=== PATIENT | female | born 1940 | race African-American/Black ===

== ENCOUNTER → 2017-10-23 | Outpatient (CLI) | payer MEDICARE ==
[~2017-10-23] MED LIST: ATEN-42; LEVO100T; LISI-604; NIFE90TA47; TRIA1CAP35
== END | disposition home or self-care (01) ==
LOC: MAMMO 09:14
PROVIDERS: ATTEND Specialist
DX: Z12.31 Encounter for screening mammogram for malignant neoplasm of breast (principal)
CPT/HCPCS: 77067

== ENCOUNTER 2018-07-04 07:40 | Inpatient (IN) | payer MEDICARE ==
[~2018-07-04] VITALS: Ht 165.1 cm; Wt 104.3 kg
[2018-07-04] VITALS (47 sets, daily range): BP systolic 113–180; BP diastolic 63–118
[2018-07-04] MEDS ORDERED: METHYLPREDNISOLONE SOD SUCC 125 MG/2 ML VIAL IV ONE (08:15)
[2018-07-04] MEDS ORDERED: FAMOTIDINE 20MG/2ML VIAL IV ONE (08:15)
[2018-07-04] MEDS ORDERED: DIPHENHYDRAMINE 50MG/ML VIAL IV ONE (08:15)
[2018-07-04 08:59] LABS: BASOPHILS % 1.5 % (0.0-2.0); EOSINOPHILS % 2.5 % (0.0-5.0); HEMATOCRIT. 40.8 % (36.0-48.0); HEMOGLOBIN. 13.9 g/dL (12.0-16.0); LYMPHOCYTES % 45.6 % (20.0-50.0); MEAN CORPUSCULAR HEMOGLOBIN 29.7 pg (28.0-32.0); MEAN CORPUSCULAR VOLUME 87.5 fL (81.0-99.0); MEAN PLATELET VOLUME 8.1 fl (7.4-10.4); MONOCYTES % 12.7 % (2.0-8.0); NEUTROPHILS % 37.7 % (40.0-76.0); PLATELET 221 x1000/uL (130-400); RED BLOOD CELL COUNT 4.66 mill/uL (4.2-5.4); RED CELL DISTRIBUTION WIDTH 13.7 % (11.6-14.6)
[2018-07-04 09:03] LABS: CHLORIDE 103 mEq/L (98-107)
[2018-07-04 09:06] LABS: PROTHROMBIN TIME 10.3 sec (9.1-11.1)
[2018-07-04] MEDS ORDERED: PROPOFOL 10MG/ML 100ML 100 ML IV ONE ×2 (09:09→09:15)
[2018-07-04] MEDS ORDERED: ETOMIDATE 2MG/ML 10ML VIAL IV ONE ×2 (09:15→15:42)
[2018-07-04] MEDS ORDERED: SUCCINYLCHOLINE CHLORIDE 200MG/10ML IV ONE ×2 (09:15→15:42)
[2018-07-04 10:03] LABS: BG BASE EXCESS -0.4 mmol/L (-2.0-2.0); BG CARBOXYHEMOGLOBIN 0.6 % (0.5-1.5); BG DEOXYHEMOGLOBIN 2.2 % (0.0-5.0); BG FRACTION INSPIRED OXYGEN 50; BG HCO3 ACT 23.4 mmol/L (22.0-26.0); BG METHEMOGLOBIN 0.3 % (0.0-1.5); BG OXYGEN SATURATION 97.8 % (92.0-98.5); BG OXYHEMOGLOBIN 96.9 % (94.0-97.0); BG PH 7.431 (7.350-7.450); BG PO2 102.7 mmHg (75.0-100.0); BG SAMPLE SITE RIGHT RADIAL; BG TIDAL VOLUME(mL) 550 mL; BG TOTAL HEMOGLOBIN 14.4 g/dL (12.0-18.0); BG VENT MODE VENT - A/C; BG VENT RATE 14 set
[2018-07-04] MEDS ORDERED: IPRATROPIUM/ALBUTEROL 0.5-3(2.5)MG/3ML NEB HHN PRN (10:30)
[2018-07-04] MEDS ORDERED: OMEP40CA34 PO (10:53)
[2018-07-04] MEDS ORDERED: LORA0.5T2 PO (10:53)
[2018-07-04] MEDS ORDERED: LISI40TA4 PO (10:53)
[2018-07-04] MEDS ORDERED: HYDR-4001 PO (10:53)
[2018-07-04] MEDS ORDERED: SIMV20TA6 PO (10:53)
[2018-07-04] MEDS ORDERED: GABA-531 PO (10:53)
[2018-07-04] MEDS: PROPOFOL 10MG/ML 100ML 100 ML IV PRN ×5 (11:38→23:05)
[2018-07-04] MEDS ORDERED: FENTANYL CITRATE/PF 500 MCG in SODIUM CHLORIDE 0.9% 40 ML IV PRN (12:00)
[2018-07-04] MEDS ORDERED: METHYLPREDNISOLONE SOD SUCC 125 MG/2 ML VIAL IV SCH (12:00)
[2018-07-04] MEDS: IPRATROPIUM/ALBUTEROL 0.5-3(2.5)MG/3ML NEB HHN SCH ×3 (12:53→21:18)
[2018-07-04] MEDS: DIPHENHYDRAMINE 50MG/ML VIAL IV SCH ×2 (13:33→18:46)
[2018-07-04] MEDS: DEXAMETHASONE 10 MG/ML VIAL IV SCH (18:46)
[2018-07-04] MEDS: FAMOTIDINE 20MG/2ML VIAL IV SCH (21:19)
[2018-07-04] MEDS: ENOXAPARIN 30MG/0.3ML SYR SUBCUT SCH (21:20)
[2018-07-04] MEDS: HYDRALAZINE 20MG/ML VIAL IV PRN (21:50)
[2018-07-04] MEDS: FENTANYL CITRATE/PF 500 MCG in SODIUM CHLORIDE 0.9% 40 ML IV PRN (22:22)
[2018-07-05] VITALS (67 sets, daily range): BP systolic 108–176; BP diastolic 50–94
[2018-07-05] MEDS: IPRATROPIUM/ALBUTEROL 0.5-3(2.5)MG/3ML NEB HHN SCH ×6 (00:38→20:00)
[2018-07-05] MEDS: PROPOFOL 10MG/ML 100ML 100 ML IV PRN ×5 (02:06→20:28)
[2018-07-05] MEDS: FENTANYL CITRATE/PF 500 MCG in SODIUM CHLORIDE 0.9% 40 ML IV PRN ×2 (04:59→18:45)
[2018-07-05] MEDS: DEXAMETHASONE 10 MG/ML VIAL IV SCH ×3 (05:07→16:59)
[2018-07-05] MEDS: DIPHENHYDRAMINE 50MG/ML VIAL IV SCH ×3 (05:08→16:59)
[2018-07-05 08:18] LABS: BG BASE EXCESS -0.8 mmol/L (-2.0-2.0); BG CARBOXYHEMOGLOBIN 0.7 % (0.5-1.5); BG DEOXYHEMOGLOBIN 1.8 % (0.0-5.0); BG FRACTION INSPIRED OXYGEN 50; BG METHEMOGLOBIN 0.4 % (0.0-1.5); BG OXYGEN SATURATION 98.2 % (92.0-98.5); BG OXYHEMOGLOBIN 97.1 % (94.0-97.0); BG PCO2 31.4 mmHg (35.0-45.0); BG PH 7.464 (7.350-7.450); BG PO2 107.7 mmHg (75.0-100.0); BG SAMPLE SITE LEFT BRACHIAL; BG TIDAL VOLUME(mL) 550 mL; BG VENT MODE VENT - A/C; BG VENT RATE 14 set
[2018-07-05] MEDS: ENOXAPARIN 30MG/0.3ML SYR SUBCUT SCH ×2 (08:28→21:02)
[2018-07-05] MEDS: ONDANSETRON HCL 4MG/2ML INJ IV PRN (08:28)
[2018-07-05] MEDS: FAMOTIDINE 20MG/2ML VIAL IV SCH ×2 (08:28→21:02)
[2018-07-05] MEDS ORDERED: DEXTROSE 50% WATER 50ML SYRINGE IV PRN (11:00)
[2018-07-05] MEDS: INSULIN LISPRO 100 UNITS/ML SUBCUT SCH ×3 (11:27→21:02)
[2018-07-05] MEDS: BLOOD SUGAR DIAGNOSTIC STRIP TEST SCH ×3 (11:28→20:48)
[2018-07-06] VITALS (69 sets, daily range): BP systolic 93–169; BP diastolic 50–133
[2018-07-06] MEDS: IPRATROPIUM/ALBUTEROL 0.5-3(2.5)MG/3ML NEB HHN SCH ×6 (00:03→21:07)
[2018-07-06] MEDS: DEXAMETHASONE 10 MG/ML VIAL IV SCH ×5 (00:13→23:44)
[2018-07-06] MEDS: DIPHENHYDRAMINE 50MG/ML VIAL IV SCH ×5 (00:14→23:43)
[2018-07-06] MEDS: PROPOFOL 10MG/ML 100ML 100 ML IV PRN ×6 (00:17→22:15)
[2018-07-06] MEDS: INSULIN LISPRO 100 UNITS/ML SUBCUT SCH ×4 (05:44→23:45)
[2018-07-06] MEDS: BLOOD SUGAR DIAGNOSTIC STRIP TEST SCH ×4 (05:45→23:42)
[2018-07-06] MEDS: ONDANSETRON HCL 4MG/2ML INJ IV PRN (08:45)
[2018-07-06] MEDS: FAMOTIDINE 20MG/2ML VIAL IV SCH ×2 (08:45→21:47)
[2018-07-06] MEDS: ENOXAPARIN 30MG/0.3ML SYR SUBCUT SCH ×2 (08:45→21:47)
[2018-07-06 08:56] LABS: BG BASE EXCESS 0.1 mmol/L (-2.0-2.0); BG CARBOXYHEMOGLOBIN 0.3 % (0.5-1.5); BG DEOXYHEMOGLOBIN 2.3 % (0.0-5.0); BG FRACTION INSPIRED OXYGEN 40; BG HCO3 ACT 24.1 mmol/L (22.0-26.0); BG METHEMOGLOBIN 0.3 % (0.0-1.5); BG OXYGEN SATURATION 97.7 % (92.0-98.5); BG OXYHEMOGLOBIN 97.1 % (94.0-97.0); BG PH 7.432 (7.350-7.450); BG SAMPLE SITE RIGHT RADIAL; BG TIDAL VOLUME(mL) 550 mL; BG VENT MODE VENT - A/C; BG VENT RATE 14 set
[2018-07-07] VITALS (52 sets, daily range): BP systolic 125–197; BP diastolic 55–99
[2018-07-07] MEDS: IPRATROPIUM/ALBUTEROL 0.5-3(2.5)MG/3ML NEB HHN SCH ×6 (00:29→20:55)
[2018-07-07] MEDS: PROPOFOL 10MG/ML 100ML 100 ML IV PRN ×6 (01:46→23:33)
[2018-07-07] MEDS: FENTANYL CITRATE/PF 500 MCG in SODIUM CHLORIDE 0.9% 40 ML IV PRN ×2 (03:17→22:25)
[2018-07-07] MEDS: DIPHENHYDRAMINE 50MG/ML VIAL IV SCH (06:31)
[2018-07-07] MEDS: DEXAMETHASONE 10 MG/ML VIAL IV SCH ×3 (06:32→17:23)
[2018-07-07] MEDS: INSULIN LISPRO 100 UNITS/ML SUBCUT SCH ×3 (06:33→17:23)
[2018-07-07] MEDS: BLOOD SUGAR DIAGNOSTIC STRIP TEST SCH ×3 (06:41→17:16)
[2018-07-07] MEDS: ENOXAPARIN 30MG/0.3ML SYR SUBCUT SCH ×2 (07:59→21:05)
[2018-07-07] MEDS: FAMOTIDINE 20MG/2ML VIAL IV SCH ×2 (07:59→21:02)
[2018-07-07 08:46] LABS: BG BASE EXCESS 0.9 mmol/L (-2.0-2.0); BG CARBOXYHEMOGLOBIN 0.7 % (0.5-1.5); BG DEOXYHEMOGLOBIN 2.4 % (0.0-5.0); BG FRACTION INSPIRED OXYGEN 40; BG HCO3 ACT 25.1 mmol/L (22.0-26.0); BG METHEMOGLOBIN 0.3 % (0.0-1.5); BG OXYGEN SATURATION 97.6 % (92.0-98.5); BG OXYHEMOGLOBIN 96.6 % (94.0-97.0); BG PCO2 38.6 mmHg (35.0-45.0); BG PH 7.431 (7.350-7.450); BG SAMPLE SITE RIGHT RADIAL; BG TIDAL VOLUME(mL) 550 mL; BG TOTAL HEMOGLOBIN 13.4 g/dL (12.0-18.0); BG VENT MODE VENT - A/C; BG VENT RATE 14 set
[2018-07-07 09:57] LABS: CHLORIDE 105 mEq/L (98-107)
[2018-07-07] MEDS ORDERED: LACTULOSE 20G/30ML UDC PO NR (10:30)
[2018-07-07] MEDS ORDERED: BISACODYL 10MG SUPP PR PRN (10:30)
[2018-07-07] MEDS ORDERED: DIPHENHYDRAMINE 50MG/ML VIAL IV PRN (10:30)
[2018-07-07 10:52] LABS: HEMOGLOBIN. 12.9 g/dL (12.0-16.0); MEAN CORPUSCULAR HEMOGLOBIN 28.8 pg (28.0-32.0); MEAN CORPUSCULAR VOLUME 87.1 fL (81.0-99.0); MEAN PLATELET VOLUME 8.9 fl (7.4-10.4); PLATELET 202 x1000/uL (130-400); RED BLOOD CELL COUNT 4.48 mill/uL (4.2-5.4); RED CELL DISTRIBUTION WIDTH 13.7 % (11.6-14.6)
[2018-07-07] MEDS: DOCUSATE SODIUM SUGAR FREE 100MG/10ML UDC NG SCH (11:03)
[2018-07-07 12:47] LABS: NUCLEATED RED BLOOD CELLS 1 /100 WBC; PLATELET ESTIMATE NORMAL
[2018-07-07] MEDS ORDERED: VANCOMYCIN 2,000 MG in DEXT 5% WATER 500 ML IV SCH (13:30)
[2018-07-08] VITALS (41 sets, daily range): BP systolic 132–198; BP diastolic 57–88
[2018-07-08] MEDS: DEXAMETHASONE 10 MG/ML VIAL IV SCH ×3 (00:19→11:08)
[2018-07-08] MEDS: INSULIN LISPRO 100 UNITS/ML SUBCUT SCH ×4 (00:21→17:12)
[2018-07-08] MEDS: BLOOD SUGAR DIAGNOSTIC STRIP TEST SCH ×4 (00:21→17:04)
[2018-07-08] MEDS: IPRATROPIUM/ALBUTEROL 0.5-3(2.5)MG/3ML NEB HHN SCH ×5 (01:20→20:10)
[2018-07-08] MEDS: PROPOFOL 10MG/ML 100ML 100 ML IV PRN ×2 (02:30→05:55)
[2018-07-08] MEDS: HYDRALAZINE 20MG/ML VIAL IV PRN ×2 (04:41→15:14)
[2018-07-08] MEDS: LORAZEPAM 2MG/ML CPJ IV PRN ×2 (08:28→17:11)
[2018-07-08] MEDS: FAMOTIDINE 20MG/2ML VIAL IV SCH ×2 (08:59→20:48)
[2018-07-08] MEDS: ENOXAPARIN 30MG/0.3ML SYR SUBCUT SCH ×2 (08:59→20:48)
[2018-07-08] MEDS: DOCUSATE SODIUM SUGAR FREE 100MG/10ML UDC NG SCH (08:59)
[2018-07-08 09:21] LABS: BG BASE EXCESS 3.2 mmol/L (-2.0-2.0); BG CARBOXYHEMOGLOBIN 0.8 % (0.5-1.5); BG CPAP (cmH2O) 0 cm(H2O); BG DEOXYHEMOGLOBIN 3.1 % (0.0-5.0); BG METHEMOGLOBIN 0.3 % (0.0-1.5); BG OXYGEN SATURATION 96.9 % (92.0-98.5); BG OXYHEMOGLOBIN 95.8 % (94.0-97.0); BG PCO2 38.8 mmHg (35.0-45.0); BG PH 7.461 (7.350-7.450); BG PO2 80.4 mmHg (75.0-100.0); BG SAMPLE SITE RIGHT RADIAL; BG VENT MODE VENT - CPAP
[2018-07-08] MEDS ORDERED: RACEPINEPHRINE 2.25% 0.5ML NEB VIAL HHN NR (10:17)
[2018-07-08] MEDS ORDERED: RACEPINEPHRINE 2.25% 0.5ML NEB VIAL HHN PRN (13:00)
[2018-07-08] MEDS: VANCOMYCIN 1250MG in DEXTROSE 5% WATER 250ML IV SCH (13:56)
[2018-07-08] MEDS ORDERED: MORPHINE SULFATE 4 MG/ML CPJ (NOT FOR IM USE) IV PRN (14:00)
[2018-07-08] MEDS ORDERED: LABETALOL 5MG/ML SYR 20 MG/4 ML SYRINGE IV PRN (15:45)
[2018-07-08] MEDS: LABETALOL HCL 20MG/4ML CARPUJECT IV PRN (16:59)
[2018-07-08] MEDS: DEXAMETHASONE 1MG TABLET PO SCH (17:00)
[2018-07-08] MEDS: HYDRALAZINE 20MG/ML VIAL IV SCH (20:48)
[2018-07-09] VITALS (33 sets, daily range): BP systolic 114–179; BP diastolic 49–87
[2018-07-09] MEDS: BLOOD SUGAR DIAGNOSTIC STRIP TEST SCH ×5 (00:01→21:29)
[2018-07-09] MEDS: DEXAMETHASONE 1MG TABLET PO SCH ×4 (00:01→23:17)
[2018-07-09] MEDS: LABETALOL HCL 20MG/4ML CARPUJECT IV PRN (00:10)
[2018-07-09] MEDS: INSULIN LISPRO 100 UNITS/ML SUBCUT SCH ×5 (00:12→21:00)
[2018-07-09] MEDS: HYDRALAZINE 20MG/ML VIAL IV SCH ×3 (02:58→12:50)
[2018-07-09] MEDS: IPRATROPIUM/ALBUTEROL 0.5-3(2.5)MG/3ML NEB HHN SCH ×5 (03:41→20:30)
[2018-07-09 06:13] LABS: BASOPHILS % 0.1 % (0.0-2.0); HEMATOCRIT. 42.2 % (36.0-48.0); HEMOGLOBIN. 13.9 g/dL (12.0-16.0); MEAN CORPUSCULAR HEMOGLOBIN 29.2 pg (28.0-32.0); MEAN CORPUSCULAR VOLUME 88.5 fL (81.0-99.0); MEAN PLATELET VOLUME 8.5 fl (7.4-10.4); MONOCYTES % 13.4 % (2.0-8.0); NEUTROPHILS % 72.5 % (40.0-76.0); PLATELET 235 x1000/uL (130-400); RED BLOOD CELL COUNT 4.77 mill/uL (4.2-5.4); RED CELL DISTRIBUTION WIDTH 13.6 % (11.6-14.6)
[2018-07-09 06:27] LABS: CHLORIDE 104 mEq/L (98-107)
[2018-07-09 06:41] LABS: HDL CHOLESTEROL 57 mg/dL (40-59); LDL CHOLESTEROL 99 mg/dL (5-100)
[2018-07-09] MEDS: ENOXAPARIN 30MG/0.3ML SYR SUBCUT SCH ×2 (08:40→21:20)
[2018-07-09] MEDS: FAMOTIDINE 20MG/2ML VIAL IV SCH ×2 (08:40→21:20)
[2018-07-09] MEDS: DOCUSATE SODIUM SUGAR FREE 100MG/10ML UDC NG SCH (08:40)
[2018-07-09 08:53] LABS: *AMPHETAMINES SCREEN URINE NEGATIVE (NEGATIVE); *BARBITURATES SCREEN URINE NEGATIVE (NEGATIVE); *BENZODIAZEPINES SCREEN URINE NEGATIVE (NEGATIVE); *COCAINE SCREEN URINE NEGATIVE (NEGATIVE); CANNABINOID URINE SCREEN NEGATIVE (NEGATIVE); METHADONE URINE SCREEN NEGATIVE (NEGATIVE); OPIATES URINE SCREEN PRESUMTIVE POSITIVE (NEGATIVE); PHENCYCLIDINE URINE SCREEN NEGATIVE (NEGATIVE)
[2018-07-09] MEDS: VANCOMYCIN 1250MG in DEXTROSE 5% WATER 250ML IV SCH (12:50)
[2018-07-09] MEDS: THROAT LOZENGES-BENZOCAINE/MENTH/CETYLPYRD CL LOZENGES MM PRN (12:51)
[2018-07-09] MEDS: HYDRALAZINE HCL 50MG TABLET PO SCH ×2 (17:51→23:17)
[2018-07-09] MEDS ORDERED: CLONIDINE 0.2MG TABLET PO PRN (18:00)
[2018-07-10] VITALS (39 sets, daily range): BP systolic 127–179; BP diastolic 58–96
[2018-07-10] MEDS: IPRATROPIUM/ALBUTEROL 0.5-3(2.5)MG/3ML NEB HHN SCH ×6 (00:21→20:44)
[2018-07-10] MEDS: HYDRALAZINE HCL 50MG TABLET PO SCH ×3 (05:20→21:06)
[2018-07-10] MEDS: BLOOD SUGAR DIAGNOSTIC STRIP TEST SCH ×3 (07:37→21:24)
[2018-07-10] MEDS: INSULIN LISPRO 100 UNITS/ML SUBCUT SCH ×3 (07:37→21:00)
[2018-07-10] MEDS: DOCUSATE SODIUM SUGAR FREE 100MG/10ML UDC NG SCH (08:20)
[2018-07-10] MEDS: THROAT LOZENGES-BENZOCAINE/MENTH/CETYLPYRD CL LOZENGES MM PRN ×2 (08:20→17:47)
[2018-07-10] MEDS: ENOXAPARIN 30MG/0.3ML SYR SUBCUT SCH ×2 (08:20→20:53)
[2018-07-10] MEDS: FAMOTIDINE 20MG/2ML VIAL IV SCH ×2 (08:20→21:06)
[2018-07-10] MEDS: DEXAMETHASONE 1MG TABLET PO SCH ×2 (08:20→15:23)
[2018-07-10] MEDS: ACETAMINOPHEN 325MG TABLET PO PRN (08:20)
[2018-07-10] MEDS ORDERED: LIDOCAINE HCL 1% 20ML VIAL (Pyxis) INJ ONE (09:09)
[2018-07-10] MEDS ORDERED: [UNRECOGNIZED DRUG - REMARK] XX SCH (09:30)
[2018-07-10] MEDS: NIFEDIPINE XL 90MG TAB PO SCH (11:01)
[2018-07-10] MEDS: ATENOLOL 50 MG TABLET PO SCH (11:01)
[2018-07-10] MEDS: NAFCILLIN SODIUM IV SCH ×3 (11:02→21:05)
[2018-07-10] MEDS: WATER IV SCH ×3 (11:02→21:05)
[2018-07-10] MEDS: DEXTROSE 5% IV SCH ×3 (11:02→21:05)
[2018-07-11] VITALS: BP 145/62
[2018-07-11] MEDS: IPRATROPIUM/ALBUTEROL 0.5-3(2.5)MG/3ML NEB HHN SCH ×5 (00:45→16:36)
[2018-07-11 04:00] VITALS: BP 116/58
[2018-07-11] MEDS: WATER IV SCH ×5 (04:17→12:21)
[2018-07-11] MEDS: DEXTROSE 5% IV SCH ×5 (04:17→12:21)
[2018-07-11] MEDS: NAFCILLIN SODIUM IV SCH ×5 (04:17→12:21)
[2018-07-11] MEDS: ACETAMINOPHEN 325MG TABLET PO PRN ×2 (04:17→13:35)
[2018-07-11] MEDS: ONDANSETRON HCL 4MG/2ML INJ IV PRN (04:18)
[2018-07-11] MEDS: INSULIN LISPRO 100 UNITS/ML SUBCUT SCH ×2 (06:20→11:45)
[2018-07-11] MEDS: BLOOD SUGAR DIAGNOSTIC STRIP TEST SCH ×2 (06:20→12:15)
[2018-07-11] MEDS: HYDRALAZINE HCL 50MG TABLET PO SCH ×2 (06:21→13:32)
[2018-07-11 08:00] VITALS: BP 131/58
[2018-07-11 09:03] LABS: HEMATOCRIT. 37.7 % (36.0-48.0); HEMOGLOBIN. 12.5 g/dL (12.0-16.0); MEAN CORPUSCULAR VOLUME 88.4 fL (81.0-99.0); RED BLOOD CELL COUNT 4.27 mill/uL (4.2-5.4)
[2018-07-11 09:04] LABS: MEAN CORPUSCULAR HEMOGLOBIN 29.4 pg (28.0-32.0); MEAN PLATELET VOLUME 8.3 fl (7.4-10.4); PLATELET 220 x1000/uL (130-400); RED CELL DISTRIBUTION WIDTH 13.5 % (11.6-14.6)
[2018-07-11] MEDS: FAMOTIDINE 20MG/2ML VIAL IV SCH (09:11)
[2018-07-11] MEDS: NIFEDIPINE XL 90MG TAB PO SCH (09:12)
[2018-07-11] MEDS: ATENOLOL 50 MG TABLET PO SCH (09:12)
[2018-07-11] MEDS: DOCUSATE SODIUM SUGAR FREE 100MG/10ML UDC NG SCH (09:13)
[2018-07-11] MEDS: ENOXAPARIN 30MG/0.3ML SYR SUBCUT SCH (09:14)
[2018-07-11 10:44] LABS: CHLORIDE 99 mEq/L (98-107)
[2018-07-11] MEDS: DEXAMETHASONE 1MG TABLET PO SCH ×2 (10:58)
[2018-07-11 12:00] VITALS: BP 124/56
[2018-07-11 13:41] LABS: PLATELET ESTIMATE NORMAL
[2018-07-11 16:00] VITALS: BP 141/63
[2018-07-11 16:15] VITALS: BP 141/63
== END 2018-07-11 17:00 | DRG 870 ==
LOC: ER 07:40 → ENRESERV 09:55 → CVICU 09:57 → EDBEDREQTM 09:58 → EDBEDREQ 09:58 → 5WST 07-10 17:30
PROVIDERS: ADMIT Internal Medicine; ATTEND Internal Medicine
PROC: 5A1955Z Respiratory Ventilation, Greater than 96 Consecutive Hours (ICD-10-PCS; principal; 2018-07-04)
PROC: 0BH17EZ Insertion of Endotracheal Airway into Trachea, Via Natural or Artificial Opening (ICD-10-PCS; 2018-07-04)
PROC: 30233L1 Transfusion of Nonautologous Fresh Plasma into Peripheral Vein, Percutaneous Approach (ICD-10-PCS; 2018-07-04)
PROC: 30233K1 Transfusion of Nonautologous Frozen Plasma into Peripheral Vein, Percutaneous Approach (ICD-10-PCS; 2018-07-04)
PROC: 02HV33Z Insertion of Infusion Device into Superior Vena Cava, Percutaneous Approach (ICD-10-PCS; 2018-07-10)
PROC: B548ZZA Ultrasonography of Superior Vena Cava, Guidance (ICD-10-PCS; 2018-07-10)
DX: A41.01 Sepsis due to Methicillin susceptible Staphylococcus aureus (principal); J96.00 Acute respiratory failure, unspecified whether with hypoxia or hypercapnia; J15.211 Pneumonia due to Methicillin susceptible Staphylococcus aureus; T88.6XXA Anaphylactic reaction due to adverse effect of correct drug or medicament properly administered, initial encounter; T78.3XXA Angioneurotic edema, initial encounter; T46.4X5A Adverse effect of angiotensin-converting-enzyme inhibitors, initial encounter; E78.5 Hyperlipidemia, unspecified; E66.01 Morbid (severe) obesity due to excess calories; E03.9 Hypothyroidism, unspecified; E11.40 Type 2 diabetes mellitus with diabetic neuropathy, unspecified; I10 Essential (primary) hypertension; R26.9 Unspecified abnormalities of gait and mobility; Z96.659 Presence of unspecified artificial knee joint; I25.10 Atherosclerotic heart disease of native coronary artery without angina pectoris; K21.9 Gastro-esophageal reflux disease without esophagitis; R13.10 Dysphagia, unspecified; T38.0X5A Adverse effect of glucocorticoids and synthetic analogues, initial encounter; Y92.89 Other specified places as the place of occurrence of the external cause; Z82.49 Family history of ischemic heart disease and other diseases of the circulatory system; Z88.8 Allergy status to other drugs, medicaments and biological substances; Z88.2 Allergy status to sulfonamides; Z79.899 Other long term (current) drug therapy; Z79.1 Long term (current) use of non-steroidal anti-inflammatories (NSAID); Z68.38 Body mass index [BMI] 38.0-38.9, adult; Z78.1 Physical restraint status
CPT/HCPCS: 36415; 36430; 36569; 36600; 71045; 76937; 80048; 80061; 80202; 80305; 82375; 82805; 82962; 83036; 83735; 84443; 84478; 84484; 86850; 86900; 86927; 87070; 87077; 92610; 93005; 93306; 93970; 94002; 94003; 94640; 96365; 96375; 96376; 97116; 97163; 97166; 97530; 99291; C1725; C1893; J0330; J0360; J1100; J1200; J1650; J1815; J2060; J2270; J2405; J2704; J2930; J3010; J3370; J3490; J7040; J7050; J7060; J7620; J8540; P9017

== ENCOUNTER 2018-07-11 16:58 | Inpatient (IN) | payer MEDICARE, OTHER ==
[~2018-07-11] VITALS: Ht 166.4 cm; Wt 99.8 kg
[~2018-07-11 16:58] MED LIST changes: +GABA-531 PO; +HYDR-4001 PO; +LISI40TA4 PO; +LORA0.5T2 PO; +OMEP40CA34 PO; +SIMV20TA6 PO
[2018-07-11 17:30] VITALS: BP 134/67
[2018-07-11 18:13] VITALS: BP 134/67
[2018-07-11] MEDS ORDERED: BISACODYL 10MG SUPP PR PRN (18:30)
[2018-07-11] MEDS ORDERED: IPRATROPIUM/ALBUTEROL 0.5-3(2.5)MG/3ML NEB HHN PRN (18:30)
[2018-07-11] MEDS ORDERED: RACEPINEPHRINE 2.25% 0.5ML NEB VIAL HHN PRN (18:30)
[2018-07-11] MEDS ORDERED: DEXTROSE 50% WATER 50ML SYRINGE IV PRN (18:30)
[2018-07-11] MEDS ORDERED: DIPHENHYDRAMINE 50MG/ML VIAL IV PRN (18:30)
[2018-07-11] MEDS ORDERED: ONDANSETRON HCL 4MG/2ML INJ IV PRN (18:30)
[2018-07-11] MEDS ORDERED: CLONIDINE 0.2MG TABLET PO PRN ×2 (19:09→20:15)
[2018-07-11 20:00] VITALS: BP_SYST 142; BP_SYST 144; BP_DIAS 56
[2018-07-11] MEDS ORDERED: THROAT LOZENGES-BENZOCAINE/MENTH/CETYLPYRD CL LOZENGES MM PRN (20:00)
[2018-07-11] MEDS: DEXAMETHASONE 2MG TABLET PO SCH (21:53)
[2018-07-11] MEDS: BLOOD SUGAR DIAGNOSTIC STRIP TEST SCH (21:54)
[2018-07-11] MEDS: HYDRALAZINE HCL 25MG TABLET PO SCH (21:54)
[2018-07-11] MEDS: NAFCILLIN SODIUM 1,000 MG in SODIUM CHLORIDE 0.9% 50 ML IV SCH (21:55)
[2018-07-11] MEDS: ENOXAPARIN 30MG/0.3ML SYR SUBCUT SCH (21:55)
[2018-07-11] MEDS: FAMOTIDINE 20MG/2ML VIAL IV SCH (21:55)
[2018-07-11] MEDS: INSULIN LISPRO 100 UNITS/ML SUBCUT SCH (22:16)
[2018-07-12] MEDS: IPRATROPIUM/ALBUTEROL 0.5-3(2.5)MG/3ML NEB HHN SCH ×6 (00:49→20:02)
[2018-07-12] MEDS: ACETAMINOPHEN 650MG/20.3ML UDC PO PRN (02:47)
[2018-07-12] MEDS: NAFCILLIN SODIUM 1,000 MG in SODIUM CHLORIDE 0.9% 50 ML IV SCH ×4 (03:45→11:49)
[2018-07-12] MEDS: HYDRALAZINE HCL 25MG TABLET PO SCH ×3 (05:40→21:23)
[2018-07-12] MEDS: DEXAMETHASONE 2MG TABLET PO SCH ×3 (05:40→21:23)
[2018-07-12] MEDS: BLOOD SUGAR DIAGNOSTIC STRIP TEST SCH ×4 (05:47→20:01)
[2018-07-12 06:50] LABS: CHLORIDE 101 mEq/L (98-107)
[2018-07-12 06:59] LABS: BASOPHILS % 0.2 % (0.0-2.0); HEMATOCRIT. 37.6 % (36.0-48.0); HEMOGLOBIN. 12.6 g/dL (12.0-16.0); LYMPHOCYTES % 19.1 % (20.0-50.0); MEAN CORPUSCULAR HEMOGLOBIN 29.4 pg (28.0-32.0); MEAN CORPUSCULAR VOLUME 88.2 fL (81.0-99.0); MEAN PLATELET VOLUME 7.9 fl (7.4-10.4); MONOCYTES % 10.6 % (2.0-8.0); NEUTROPHILS % 68.1 % (40.0-76.0); PLATELET 217 x1000/uL (130-400); RED BLOOD CELL COUNT 4.27 mill/uL (4.2-5.4); RED CELL DISTRIBUTION WIDTH 13.2 % (11.6-14.6)
[2018-07-12 08:14] VITALS: BP 119/53
[2018-07-12] MEDS: INSULIN LISPRO 100 UNITS/ML SUBCUT SCH ×4 (09:00→20:02)
[2018-07-12] MEDS: DOCUSATE SODIUM 250MG CAPSULE PO SCH (09:00)
[2018-07-12] MEDS: ATENOLOL 50 MG TABLET PO SCH ×2 (09:00→09:12)
[2018-07-12] MEDS ORDERED: HYDROCODONE/ACETAMINOPHEN 5/325MG TABLET PO PRN (09:00)
[2018-07-12] MEDS: FAMOTIDINE 20MG/2ML VIAL IV SCH ×2 (09:09→19:50)
[2018-07-12] MEDS: NIFEDIPINE XL 90MG TAB PO SCH (09:11)
[2018-07-12] MEDS: ENOXAPARIN 30MG/0.3ML SYR SUBCUT SCH ×2 (09:12→09:21)
[2018-07-12 20:00] VITALS: BP 131/63
[2018-07-12 20:02] LABS: CLARITY URINE CLEAR (CLEAR); COLOR URINE YELLOW (YELLOW); KETONES URINE NEGATIVE (NEGATIVE); LEUKOCYTE ESTERASE URINE 1+ (NEGATIVE); NITRITE URINE NEGATIVE (NEGATIVE); OCCULT BLOOD URINE NEGATIVE (NEGATIVE); PH URINE 6.5 (4.5-8.0); PROTEIN URINE NEGATIVE (NEGATIVE); SPECIFIC GRAVITY URINE 1.018 (1.005-1.030)
[2018-07-13] MEDS: IPRATROPIUM/ALBUTEROL 0.5-3(2.5)MG/3ML NEB HHN SCH ×6 (00:19→21:38)
[2018-07-13] MEDS: ACETAMINOPHEN 650MG/20.3ML UDC PO PRN (04:34)
[2018-07-13 06:20] VITALS: BP 136/60
[2018-07-13] MEDS: HYDRALAZINE HCL 25MG TABLET PO SCH ×3 (06:23→22:15)
[2018-07-13] MEDS: DEXAMETHASONE 2MG TABLET PO SCH ×2 (06:23→13:28)
[2018-07-13] MEDS: BLOOD SUGAR DIAGNOSTIC STRIP TEST SCH ×4 (06:28→21:00)
[2018-07-13] MEDS: INSULIN LISPRO 100 UNITS/ML SUBCUT SCH ×4 (06:28→21:00)
[2018-07-13 07:21] LABS: CHLORIDE 101 mEq/L (98-107)
[2018-07-13 07:25] LABS: HEMATOCRIT. 34.9 % (36.0-48.0); HEMOGLOBIN. 11.7 g/dL (12.0-16.0); MEAN CORPUSCULAR HEMOGLOBIN 29.7 pg (28.0-32.0); MEAN CORPUSCULAR VOLUME 88.5 fL (81.0-99.0); PLATELET 188 x1000/uL (130-400); RED BLOOD CELL COUNT 3.95 mill/uL (4.2-5.4); RED CELL DISTRIBUTION WIDTH 13.2 % (11.6-14.6)
[2018-07-13 07:38] LABS: PHOSPHORUS 3.3 mg/dL (2.5-4.9)
[2018-07-13 07:40] LABS: HDL CHOLESTEROL 38 mg/dL (40-59); LDL CHOLESTEROL 108 mg/dL (5-100)
[2018-07-13 07:41] LABS: TOTAL IRON BINDING CAPACITY 187 ug/dL (250-450)
[2018-07-13 07:46] LABS: FOLIC ACID (FOLATE) SERUM 14.7 ng/mL (>5.38)
[2018-07-13 07:50] VITALS: BP 117/50
[2018-07-13] MEDS: NIFEDIPINE XL 90MG TAB PO SCH (09:00)
[2018-07-13] MEDS: ATENOLOL 50 MG TABLET PO SCH (09:00)
[2018-07-13] MEDS: DOCUSATE SODIUM 250MG CAPSULE PO SCH (09:52)
[2018-07-13] MEDS: FAMOTIDINE 20MG/2ML VIAL IV SCH ×2 (09:53→22:14)
[2018-07-13] MEDS: ENOXAPARIN 30MG/0.3ML SYR SUBCUT SCH ×2 (09:53→22:15)
[2018-07-13 12:45] LABS: PLATELET ESTIMATE NORMAL
[2018-07-13 20:00] VITALS: BP 163/68
[2018-07-14] MEDS: IPRATROPIUM/ALBUTEROL 0.5-3(2.5)MG/3ML NEB HHN SCH ×6 (01:12→20:47)
[2018-07-14] MEDS: BLOOD SUGAR DIAGNOSTIC STRIP TEST SCH ×4 (05:50→21:31)
[2018-07-14] MEDS: HYDRALAZINE HCL 25MG TABLET PO SCH ×4 (05:50→21:38)
[2018-07-14] MEDS: ACETAMINOPHEN 650MG/20.3ML UDC PO PRN (05:58)
[2018-07-14] MEDS: INSULIN LISPRO 100 UNITS/ML SUBCUT SCH ×4 (06:24→21:00)
[2018-07-14 07:10] LABS: T4 FREE 1.2 ng/dL (0.76-1.46)
[2018-07-14 08:28] VITALS: BP 108/50
[2018-07-14] MEDS: FAMOTIDINE 20MG/2ML VIAL IV SCH ×2 (08:46→21:30)
[2018-07-14] MEDS: DOCUSATE SODIUM 250MG CAPSULE PO SCH (08:46)
[2018-07-14] MEDS: ENOXAPARIN 30MG/0.3ML SYR SUBCUT SCH ×2 (08:47→21:32)
[2018-07-14] MEDS: NIFEDIPINE XL 90MG TAB PO SCH (08:49)
[2018-07-14] MEDS: ATENOLOL 50 MG TABLET PO SCH (08:50)
[2018-07-14] MEDS ORDERED: DEXAMETHASONE 2MG TABLET PO SCH (09:00)
[2018-07-14 20:00] VITALS: BP 110/68
[2018-07-14] MEDS: PANTOPRAZOLE 40MG DR TABLET PO SCH (21:32)
[2018-07-15] MEDS: IPRATROPIUM/ALBUTEROL 0.5-3(2.5)MG/3ML NEB HHN SCH ×6 (00:59→20:54)
[2018-07-15] MEDS: ACETAMINOPHEN 650MG/20.3ML UDC PO PRN (04:16)
[2018-07-15] MEDS: BLOOD SUGAR DIAGNOSTIC STRIP TEST SCH ×4 (06:42→21:49)
[2018-07-15] MEDS: HYDRALAZINE HCL 25MG TABLET PO SCH ×2 (06:42→21:48)
[2018-07-15] MEDS: INSULIN LISPRO 100 UNITS/ML SUBCUT SCH ×4 (06:42→21:00)
[2018-07-15 08:00] VITALS: BP 124/56
[2018-07-15] MEDS: ENOXAPARIN 30MG/0.3ML SYR SUBCUT SCH ×2 (08:53→21:48)
[2018-07-15] MEDS: FAMOTIDINE 20MG/2ML VIAL IV SCH (08:54)
[2018-07-15] MEDS: PANTOPRAZOLE 40MG DR TABLET PO SCH ×2 (08:54→21:47)
[2018-07-15] MEDS: DOCUSATE SODIUM 250MG CAPSULE PO SCH (08:54)
[2018-07-15] MEDS: ATENOLOL 50 MG TABLET PO SCH (08:55)
[2018-07-15] MEDS: NIFEDIPINE XL 90MG TAB PO SCH (08:55)
[2018-07-15] MEDS ORDERED: DEXAMETHASONE 2MG TABLET PO SCH (09:00)
[2018-07-15 20:00] VITALS: BP 123/57
[2018-07-16] MEDS: IPRATROPIUM/ALBUTEROL 0.5-3(2.5)MG/3ML NEB HHN SCH ×4 (00:57→13:18)
[2018-07-16] MEDS: HYDRALAZINE HCL 25MG TABLET PO SCH ×2 (05:16→14:00)
[2018-07-16] MEDS: BLOOD SUGAR DIAGNOSTIC STRIP TEST SCH ×2 (06:07→12:02)
[2018-07-16] MEDS: INSULIN LISPRO 100 UNITS/ML SUBCUT SCH ×2 (06:08→12:06)
[2018-07-16 08:00] VITALS: BP 127/55
[2018-07-16] MEDS: ACETAMINOPHEN 650MG/20.3ML UDC PO PRN (08:10)
[2018-07-16] MEDS: ENOXAPARIN 30MG/0.3ML SYR SUBCUT SCH (08:11)
[2018-07-16] MEDS: DOCUSATE SODIUM 250MG CAPSULE PO SCH (08:11)
[2018-07-16] MEDS: PANTOPRAZOLE 40MG DR TABLET PO SCH (08:11)
[2018-07-16] MEDS: ATENOLOL 50 MG TABLET PO SCH (08:11)
[2018-07-16] MEDS: NIFEDIPINE XL 90MG TAB PO SCH (08:11)
[2018-07-16 11:44] VITALS: BP 127/55
[2018-07-19 17:06] LABS: 25-HYDROXY VITAMIN D3 17 ng/mL (.)
== END 2018-07-16 15:20 | disposition home health service (06) | DRG 915 ==
PROVIDERS: ADMIT Physical Medicine & Rehabilitation Spinal Cord Injury Medicine; ATTEND Internal Medicine
DX: T78.3XXA Angioneurotic edema, initial encounter (principal); J96.00 Acute respiratory failure, unspecified whether with hypoxia or hypercapnia; J15.211 Pneumonia due to Methicillin susceptible Staphylococcus aureus; A41.9 Sepsis, unspecified organism; Z88.8 Allergy status to other drugs, medicaments and biological substances; R53.81 Other malaise; E66.01 Morbid (severe) obesity due to excess calories; E03.9 Hypothyroidism, unspecified; E11.9 Type 2 diabetes mellitus without complications; E78.00 Pure hypercholesterolemia, unspecified; E78.5 Hyperlipidemia, unspecified; I10 Essential (primary) hypertension; R13.10 Dysphagia, unspecified; S16.1XXA Strain of muscle, fascia and tendon at neck level, initial encounter; T46.4X5A Adverse effect of angiotensin-converting-enzyme inhibitors, initial encounter; Z96.659 Presence of unspecified artificial knee joint; R26.9 Unspecified abnormalities of gait and mobility; K21.9 Gastro-esophageal reflux disease without esophagitis; E05.90 Thyrotoxicosis, unspecified without thyrotoxic crisis or storm; Z87.01 Personal history of pneumonia (recurrent); Z68.36 Body mass index [BMI] 36.0-36.9, adult; X58.XXXA Exposure to other specified factors, initial encounter; Y93.89 Activity, other specified; Y92.89 Other specified places as the place of occurrence of the external cause; Y99.8 Other external cause status
CPT/HCPCS: 36415; 80061; 82306; 82607; 82728; 82746; 82962; 83540; 83550; 83735; 84100; 84134; 84439; 84443; 84481; 84630; 92523; 92610; 93970; 94640; 97110; 97116; 97162; 97166; 97530; 97535; G0515; J1650; J1815; J3490; J7620; J8540

== ENCOUNTER 2018-07-28 14:42 | Emergency (ER) | payer MEDICARE, OTHER ==
[~2018-07-28] VITALS: Ht 165.1 cm; Wt 100.5 kg
[~2018-07-28 14:42] MED LIST changes: -ATEN-42; -GABA-531 PO; -HYDR-4001 PO; -LEVO100T; -LISI-604; -LISI40TA4 PO; -LORA0.5T2 PO; -OMEP40CA34 PO; -SIMV20TA6 PO; -TRIA1CAP35
[2018-07-28 15:25] VITALS: BP 173/65
== END 2018-07-28 17:07 | disposition home or self-care (01) ==
LOC: ER 15:54
DX: S60.212A Contusion of left wrist, initial encounter (principal); M13.832 Other specified arthritis, left wrist; I10 Essential (primary) hypertension; E03.9 Hypothyroidism, unspecified; Z96.659 Presence of unspecified artificial knee joint; Z88.2 Allergy status to sulfonamides; Z88.8 Allergy status to other drugs, medicaments and biological substances; X58.XXXA Exposure to other specified factors, initial encounter; Y93.89 Activity, other specified; Y92.89 Other specified places as the place of occurrence of the external cause; Y99.8 Other external cause status
CPT/HCPCS: 73110; 99283

== ENCOUNTER 2020-07-04 04:37 | Emergency (ER) | payer MEDICARE ==
[~2020-07-04] VITALS: Ht 165.1 cm; Wt 100.0 kg
[~2020-07-04 04:37] MED LIST changes: +ATEN-42 MT; +FERR325T6 MT; +GABA300S PO; +HYDR-4135 MT; +LEVO100T9 MT; +OMEP40CA12 MT; +SIMV-43 MT; +TRIA1TAB92 PO
[2020-07-04] MEDS ORDERED: METHYLPREDNISOLONE SOD SUCC 125 MG/2 ML VIAL IV ONE (05:15)
[2020-07-04] MEDS ORDERED: DIPHENHYDRAMINE 50MG/ML VIAL IV ONE (05:15)
[2020-07-04] MEDS ORDERED: FAMOTIDINE 20MG/2ML VIAL IV ONE (05:15)
[2020-07-04 05:53] LABS: CHLORIDE 104 mEq/L (98-107); EOSINOPHILS % 1.2 % (0.0-5.0); HEMATOCRIT. 41.6 % (36.0-48.0); HEMOGLOBIN. 14.1 g/dL (12.0-16.0); LYMPHOCYTES % 24.5 % (20.0-50.0); MEAN CORPUSCULAR HEMOGLOBIN 30.1 pg (28.0-32.0); MEAN CORPUSCULAR VOLUME 88.9 fL (81.0-99.0); MEAN PLATELET VOLUME 8.4 fl (7.4-10.4); MONOCYTES % 8.8 % (2.0-8.0); NEUTROPHILS % 64.5 % (40.0-76.0); PLATELET 214 x1000/uL (130-400); RED BLOOD CELL COUNT 4.68 mill/uL (4.2-5.4); RED CELL DISTRIBUTION WIDTH 14.3 % (11.6-14.6)
[2020-07-04 07:57] VITALS: BP 174/79
== END 2020-07-04 08:02 | disposition home or self-care (01) ==
LOC: ER 04:37
DX: R22.0 Localized swelling, mass and lump, head (principal); I10 Essential (primary) hypertension
CPT/HCPCS: 36415; 71045; 80053; 85025; 93005; 96374; 96375; 99285; J1200; J2930; J3490

== ENCOUNTER 2020-07-06 11:37 | Emergency (ER) | payer MEDICARE ==
[~2020-07-06] VITALS: Ht 165.1 cm; Wt 100.0 kg
[2020-07-06] MEDS ORDERED: METHYLPREDNISOLONE SOD SUCC 125 MG/2 ML VIAL IV ONE (13:15)
[2020-07-06] MEDS ORDERED: DIPHENHYDRAMINE 50MG/ML VIAL IV ONE (13:15)
[2020-07-06 17:30] VITALS: BP 147/72
== END 2020-07-06 17:34 | disposition home or self-care (01) ==
LOC: ER 11:37
DX: T78.40XA Allergy, unspecified, initial encounter (principal); X58.XXXA Exposure to other specified factors, initial encounter
CPT/HCPCS: 96374; 96375; 99285; J1200; J2930

== ENCOUNTER 2021-02-09 16:30 | Emergency (ER) | payer BC, MEDICARE, OTHER ==
[~2021-02-09] VITALS: Ht 165.1 cm; Wt 104.0 kg
[2021-02-09 16:40] VITALS: BP 156/75
== END 2021-02-09 18:13 | disposition home or self-care (01) ==
LOC: ER 16:30
DX: I10 Essential (primary) hypertension (principal)
CPT/HCPCS: 99281

== ENCOUNTER 2021-07-09 19:00 | Emergency (ER) | payer BC ==
[~2021-07-09] VITALS: Ht 165.1 cm; Wt 107.0 kg
[~2021-07-09 19:00] MED LIST changes: -OMEP40CA12 MT; +OMEP40CA20 MT
[2021-07-10] MEDS ORDERED: ACETAMINOPHEN 325MG TABLET PO ONE (01:00)
[2021-07-10 03:15] VITALS: BP 162/75
== END 2021-07-10 03:38 | disposition home or self-care (01) ==
LOC: ER 19:00
DX: M25.512 Pain in left shoulder (principal); M54.59 Other low back pain; M54.6 Pain in thoracic spine; M54.2 Cervicalgia; G89.11 Acute pain due to trauma; I10 Essential (primary) hypertension; E78.00 Pure hypercholesterolemia, unspecified; V49.59XA Passenger injured in collision with other motor vehicles in traffic accident, initial encounter; Y93.89 Activity, other specified; Y92.488 Other paved roadways as the place of occurrence of the external cause; E03.9 Hypothyroidism, unspecified; K44.9 Diaphragmatic hernia without obstruction or gangrene
CPT/HCPCS: 72128; 72131; 73030; 99284

== ENCOUNTER 2023-06-22 09:17 | Emergency (ER) | payer BC, MEDICARE ==
[~2023-06-22] VITALS: Ht 165.1 cm; Wt 99.8 kg
[~2023-06-22 09:17] MED LIST changes: -GABA300S PO; +GABA300S4 PO
[2023-06-22 09:45] VITALS: O2SAT 98
[2023-06-22 10:48] LABS: CHLORIDE 105 mEq/L (98-107); INDEX HEMOLYSI 1 (1-3); INDEX ICTERIC 1 (1-4); INDEX LIPEMIC 1 (1-3); POTASSIUM 4.1 mEq/L (3.5-5.1); SODIUM 136 mEq/L (136-145)
[2023-06-22 10:52] LABS: BASOPHILS % 1.3 % (0.0-2.0); EOSINOPHILS % 1.5 % (0.0-5.0); HEMOGLOBIN. 12.2 g/dL (12.0-16.0); LYMPHOCYTES % 24.4 % (20.0-50.0); MEAN CORPUSCULAR HEMOGLOBIN 26.8 pg (28.0-32.0); MEAN CORPUSCULAR HGB CONC 33.1 g/dL (31.0-37.0); MEAN CORPUSCULAR VOLUME 81.1 fL (81.0-99.0); MEAN PLATELET VOLUME 8.1 fl (7.4-10.4); NEUTROPHILS % 63.8 % (40.0-76.0); PLATELET 251 x1000/uL (130-400); RED BLOOD CELL COUNT 4.56 mill/uL (4.2-5.4); RED CELL DISTRIBUTION WIDTH 19.6 % (11.6-14.6); WHITE BLOOD COUNT 4.5 x1000/uL (4.5-11.0)
[2023-06-22 10:54] LABS: ALANINE AMINOTRANSFERASE 17 IU/L (13-61); ALBUMIN 3.6 g/dL (3.4-5.0); ASPARTATE AMINOTRANSFERASE 15 IU/L (15-37); BILIRUBIN TOTAL 0.5 mg/dL (0.1-1.0); CALCIUM 8.9 mg/dL (8.5-10.1); CARBON DIOXIDE 26 mEq/L (21-32); CREATININE 0.9 mg/dL (0.6-1.3); GLUCOSE 128 mg/dL (70-105); PROTEIN TOTAL 7.6 g/dL (6.0-8.3); UREA NITROGEN BLOOD 13 mg/dL (7-21)
[2023-06-22 14:22] VITALS: BP 193/78; PULSE 57; RESP 18; TEMP 97.9
== END 2023-06-22 19:35 | disposition home or self-care (01) ==
LOC: ER 10:40
DX: H93.13 Tinnitus, bilateral (principal); E78.00 Pure hypercholesterolemia, unspecified; I10 Essential (primary) hypertension; E03.9 Hypothyroidism, unspecified; Z96.653 Presence of artificial knee joint, bilateral
CPT/HCPCS: 36415; 80053; 83735; 85025; 99284

== ENCOUNTER 2024-03-15 05:48 | Emergency (ER) | payer BC ==
[~2024-03-15] VITALS: Ht 167.6 cm; Wt 100.0 kg
[~2024-03-15 05:48] MED LIST changes: -HYDR-4135 MT; +HYDR50TA40 MT
[2024-03-15 05:50] VITALS: O2SAT 98
[2024-03-15] MEDS: METHYLPREDNISOLONE SOD SUCC 125MG/2ML (ACT-O-VIAL) IM ONE (07:04)
[2024-03-15] MEDS: FAMOTIDINE 20MG/2ML VIAL IV ONE (07:05)
[2024-03-15 07:16] LABS: BASOPHILS % 1.1 % (0.0-2.0); EOSINOPHILS % 5.2 % (0.0-5.0); HEMATOCRIT. 32.9 % (36.0-48.0); HEMOGLOBIN. 10.5 g/dL (12.0-16.0); LYMPHOCYTES % 26.2 % (20.0-50.0); MEAN CORPUSCULAR HGB CONC 32.1 g/dL (31.0-37.0); MEAN CORPUSCULAR VOLUME 84.1 fL (81.0-99.0); MEAN PLATELET VOLUME 8.1 fl (7.4-10.4); MONOCYTES % 9.4 % (2.0-8.0); NEUTROPHILS % 58.1 % (40.0-76.0); PLATELET 144 x1000/uL (130-400); RED BLOOD CELL COUNT 3.91 mill/uL (4.2-5.4); RED CELL DISTRIBUTION WIDTH 18.2 % (11.6-14.6); WHITE BLOOD COUNT 5.6 x1000/uL (4.5-11.0)
[2024-03-15 07:18] LABS: CARBON DIOXIDE 25 mEq/L (21-32); CHLORIDE 104 mEq/L (98-107); POTASSIUM 4.3 mEq/L (3.5-5.1); SODIUM 136 mEq/L (136-145)
[2024-03-15 07:19] LABS: CALCIUM 9.4 mg/dL (8.7-10.4)
[2024-03-15 07:24] LABS: GLUCOSE 117 mg/dL (70-105); UREA NITROGEN BLOOD 6 mg/dL (9-23)
[2024-03-15] MEDS ORDERED: FAMO-135 MT (10:12)
[2024-03-15] MEDS ORDERED: EPIN0.3A3 IM (10:12)
[2024-03-15] MEDS ORDERED: P50 MT (10:12)
[2024-03-15] MEDS ORDERED: DIPH25TA62 MT (10:12)
[2024-03-15 10:38] VITALS: BP 162/72; PULSE 76; RESP 16; TEMP 98.6
== END 2024-03-15 11:00 | disposition home or self-care (01) ==
LOC: ER 05:48
DX: T78.3XXA Angioneurotic edema, initial encounter (principal); I10 Essential (primary) hypertension; Z88.2 Allergy status to sulfonamides; Z79.899 Other long term (current) drug therapy
CPT/HCPCS: 99283; 96374; 80048; 85025; 36415; 96372; J3490; J2919

== ENCOUNTER 2024-04-22 10:34 | Emergency (ER) | payer BC, MEDICARE ==
[~2024-04-22] VITALS: Ht 165.1 cm; Wt 103.0 kg
[~2024-04-22 10:34] MED LIST changes: +DIPH25TA62 MT; +EPIN0.3A3 IM; +FAMO-135 MT; +P50 MT
[2024-04-22 10:57] VITALS: BP 154/57; PULSE 61; RESP 12; TEMP 98.3; O2SAT 99
[2024-04-22 11:26] LABS: HEMATOCRIT. 33.4 % (36.0-48.0); LYMPHOCYTES % 35.3 % (20.0-50.0); MEAN CORPUSCULAR HEMOGLOBIN 27.4 pg (28.0-32.0); MEAN CORPUSCULAR VOLUME 82.9 fL (81.0-99.0); MEAN PLATELET VOLUME 7.6 fl (7.4-10.4); MONOCYTES % 10.9 % (2.0-8.0); NEUTROPHILS % 50.8 % (40.0-76.0); PLATELET 274 x1000/uL (130-400); RED BLOOD CELL COUNT 4.03 mill/uL (4.2-5.4); RED CELL DISTRIBUTION WIDTH 17.5 % (11.6-14.6); WHITE BLOOD COUNT 5.2 x1000/uL (4.5-11.0)
[2024-04-22 11:36] LABS: CARBON DIOXIDE 28 mEq/L (21-32); CHLORIDE 107 mEq/L (98-107); POTASSIUM 3.9 mEq/L (3.5-5.1); SODIUM 137 mEq/L (136-145)
[2024-04-22 11:37] LABS: CALCIUM 9.3 mg/dL (8.7-10.4)
[2024-04-22 11:41] LABS: CREATININE 0.9 mg/dL (0.6-1.0)
[2024-04-22 11:42] LABS: GLUCOSE 113 mg/dL (70-105); UREA NITROGEN BLOOD 7 mg/dL (9-23)
== END 2024-04-22 15:22 | disposition home or self-care (01) ==
LOC: ER 10:50
DX: M25.561 Pain in right knee (principal); I10 Essential (primary) hypertension; Z88.3 Allergy status to other anti-infective agents; Z88.8 Allergy status to other drugs, medicaments and biological substances; Z88.2 Allergy status to sulfonamides; Z79.899 Other long term (current) drug therapy; Z98.890 Other specified postprocedural states
CPT/HCPCS: 36415; 80048; 85025; 93970; 99284

== ENCOUNTER 2025-02-22 20:05 | Emergency (ER) | payer BC, MEDICARE ==
[~2025-02-22] VITALS: Ht 165.1 cm; Wt 100.0 kg
[~2025-02-22 20:05] MED LIST changes: -ATEN-42 MT; +DIPH25CA83 PO; -DIPH25TA62 MT; -FAMO-135 MT; +FLUT1BLS3 IH; +FLUT9.9S16 BOTHNSTRLS; +GABA-1180 PO; -GABA300S4 PO; +HYDR-4001 MT; -HYDR50TA40 MT; +LEVO100T PO; -LEVO100T9 MT; +LORA-249 PO; +MECL-299 PO; +MINO2.5T2 PO; +NEBI5TAB13 PO; +NIFE-33 PO; -NIFE90TA47; -P50 MT; +PROCARDIA PO; +TIMO5DRO16 EACHEYE
[2025-02-22 20:25] VITALS: O2SAT 96
[2025-02-22] MEDS ORDERED: MINO2.5T2 MT (21:14)
[2025-02-22 21:34] VITALS: BP 170/67; PULSE 62; RESP 16; TEMP 36.6; O2SAT 100
== END 2025-02-22 21:40 | disposition home or self-care (01) ==
LOC: ER 20:05
DX: M54.12 Radiculopathy, cervical region (principal); F41.9 Anxiety disorder, unspecified; I10 Essential (primary) hypertension; J45.909 Unspecified asthma, uncomplicated; Z76.0 Encounter for issue of repeat prescription; Z98.890 Other specified postprocedural states; Z79.899 Other long term (current) drug therapy; Z88.8 Allergy status to other drugs, medicaments and biological substances
CPT/HCPCS: 99281; 99282; 99283

== ENCOUNTER 2025-06-07 09:08 | Emergency (ER) | payer BC ==
[~2025-06-07] VITALS: Ht 165.1 cm; Wt 100.0 kg
[~2025-06-07 09:08] MED LIST changes: +MINO2.5T2 MT
[2025-06-07 09:14] VITALS: O2SAT 99
[2025-06-07] MEDS: KETOROLAC 15MG/ML VIAL IM ONE (10:02)
[2025-06-07 10:49] LABS: CLARITY URINE CLEAR (CLEAR); COLOR URINE YELLOW (YELLOW); GLUCOSE URINE NEGATIVE (NEGATIVE); KETONES URINE NEGATIVE (NEGATIVE); LEUKOCYTE ESTERASE URINE TRACE (NEGATIVE); NITRITE URINE NEGATIVE (NEGATIVE); OCCULT BLOOD URINE NEGATIVE (NEGATIVE); PH URINE 6.5 (4.5-8.0); PROTEIN URINE NEGATIVE (NEGATIVE); SPECIFIC GRAVITY URINE 1.012 (1.005-1.030); UROBILINOGEN URINE 0.2 E.U./dL (0.2-1.0)
[2025-06-07 11:12] LABS: BASOPHILS % 1.0 % (0.0-2.0); EOSINOPHILS % 1.8 % (0.0-5.0); HEMATOCRIT. 39.1 % (36.0-48.0); HEMOGLOBIN. 12.9 g/dL (12.0-16.0); LYMPHOCYTES % 28.1 % (20.0-50.0); MEAN PLATELET VOLUME 8.2 fl (7.4-10.4); MONOCYTES % 9.2 % (2.0-8.0); NEUTROPHILS % 59.9 % (40.0-76.0); PLATELET 239 x1000/uL (130-400); RED BLOOD CELL COUNT 4.80 mill/uL (4.2-5.4); RED CELL DISTRIBUTION WIDTH 20.4 % (11.6-14.6)
[2025-06-07 11:14] LABS: CREATININE 0.9 mg/dL (0.6-1.0); UREA NITROGEN BLOOD 9 mg/dL (9-23)
[2025-06-07 11:16] LABS: ASPARTATE AMINOTRANSFERASE 15 IU/L (<34); BILIRUBIN DIRECT 0.2 mg/dL (<=3.0); BILIRUBIN TOTAL 0.6 mg/dL (0.1-1.0)
[2025-06-07 11:16] LABS: BACTERIA URINE TRACE; RBC URINE 0-2 /hpf (0-2); SQUAMOUS EPITHELIAL CELL URINE 2+ /lpf (RARE/1+); WBC URINE 0-2 /hpf (0-2); YEAST URINE NONE SEEN
[2025-06-07 11:17] LABS: PROTEIN TOTAL 7.0 g/dL (6.0-8.3)
[2025-06-07] MEDS ORDERED: LIDO700A30 TP (11:21)
[2025-06-07] MEDS ORDERED: CYCL10TA21 MT (11:21)
[2025-06-07 11:57] VITALS: BP 170/68; PULSE 61; RESP 16; TEMP 36.9; O2SAT 98
== END 2025-06-07 11:59 | disposition home or self-care (01) ==
LOC: ER 09:10
DX: R10.9 Unspecified abdominal pain (principal); R35.0 Frequency of micturition; F41.9 Anxiety disorder, unspecified; E03.8 Other specified hypothyroidism; J45.909 Unspecified asthma, uncomplicated; I10 Essential (primary) hypertension; Z79.899 Other long term (current) drug therapy; Z96.659 Presence of unspecified artificial knee joint; Z88.8 Allergy status to other drugs, medicaments and biological substances
CPT/HCPCS: 99285; 74176; 80076; 80048; 81003; 85025; 36415; 96372; J1885

== ENCOUNTER 2025-08-25 09:52 | Emergency (ER) | payer BC ==
[~2025-08-25] VITALS: Ht 167.6 cm; Wt 95.0 kg
[~2025-08-25 09:52] MED LIST changes: +CYCL10TA21 MT; +LIDO700A30 TP
[2025-08-25 10:01] VITALS: O2SAT 97
[2025-08-25] MEDS: LIDOCAINE 5% PATCH TOP SCH (10:41)
[2025-08-25] MEDS: ACETAMINOPHEN 500MG TABLET PO ONE (10:41)
[2025-08-25 12:23] VITALS: BP 131/47; PULSE 55; RESP 18; TEMP 36.6; O2SAT 100
== END 2025-08-25 14:27 | disposition home or self-care (01) ==
LOC: ER 10:19
DX: S16.1XXA Strain of muscle, fascia and tendon at neck level, initial encounter (principal); I10 Essential (primary) hypertension; J45.909 Unspecified asthma, uncomplicated; F41.9 Anxiety disorder, unspecified; E03.8 Other specified hypothyroidism; E04.9 Nontoxic goiter, unspecified; Z88.8 Allergy status to other drugs, medicaments and biological substances; Z79.899 Other long term (current) drug therapy; X58.XXXA Exposure to other specified factors, initial encounter; Y93.89 Activity, other specified; Y92.89 Other specified places as the place of occurrence of the external cause; Y99.8 Other external cause status
CPT/HCPCS: 99284